=== PATIENT | male | born 2000 ===

== ENCOUNTER 2024-03-04 02:15 | Inpatient (IN) | payer MEDICAID, SELFPAY ==
[2024-03-04] MEDS ORDERED: NOREPINEPHRINE 8 MG/250 ML-D5W 250 ML ONE ×4 (02:53→07:42)
[2024-03-04] MEDS ORDERED: Sodium Bicarb 50 MEQ/50 ML Abboject 8.4% SYRINGE ONE ×5 (03:49→10:16)
[2024-03-04] MEDS ORDERED: Calcium Chloride 1 GM/10 ML Abboject SYRINGE ONE ×5 (03:50→11:16)
[2024-03-04] MEDS ORDERED: Insulin Regular, Human 100 UNIT/ML 10 ML VIAL ONE (03:51)
[2024-03-04] MEDS ORDERED: Dextrose 5% in Water 1,000 ML IV PRN (04:16)
[2024-03-04] MEDS ORDERED: Glucagon 1 MG/ML KIT IM PRN (04:16)
[2024-03-04] MEDS ORDERED: Dextrose 50% Abboject 50 ML SYRINGE SLOW IVP PRN (04:16)
[2024-03-04] MEDS ORDERED: Electrolyte Replacement Protocol 1 EACH FS PRN (04:17)
[2024-03-04 04:26] LABS: Prothrombin Time 31.5 sec (12.0-14.7)
[2024-03-04] MEDS ORDERED: Propofol 1,000 MG/100 ML VIAL IV PRN ×2 (04:30→11:45)
[2024-03-04] MEDS ORDERED: Fentanyl BOLUS 250 ML IVPB PRN ×2 (04:30→11:45)
[2024-03-04] MEDS ORDERED: Morphine 2 MG/ML VIAL SLOW IVP PRN ×2 (04:30→11:45)
[2024-03-04] MEDS ORDERED: Fentanyl CADD 100 ML IV SCH ×2 (04:30→11:45)
[2024-03-04] MEDS ORDERED: Lorazepam 2 MG/ML VIAL SLOW IVP PRN ×2 (04:30→11:45)
[2024-03-04] MEDS ORDERED: Propofol BOLUS 1,000 MG/100 ML VIAL IV PRN ×2 (04:30→11:45)
[2024-03-04] MEDS ORDERED: DISCONTINUE PREVIOUS NARCOTIC PAIN MEDICATIONS AND BENZODIAZEPINES FS SCH ×2 (04:30→11:45)
[2024-03-04] MEDS ORDERED: CEFAZOLIN 1 GM VIAL ONE (04:43)
[2024-03-04] MEDS ORDERED: EPINEPHrine 1 MG/10 ML Abboject SYRINGE ONE (04:43)
[2024-03-04] MEDS ORDERED: Sterile Water 20 ML ONE (04:43)
[2024-03-04] MEDS ORDERED: PHENYLEPHRINE-NS 100 MCG/ML 10 ML SYRINGE ONE (04:43)
[2024-03-04] MEDS ORDERED: Rocuronium Bromide 10 MG/ML (10ML VIAL) ONE ×2 (04:43→07:41)
[2024-03-04 04:50] LABS: Fibrinogen 96 mg/dL (253-463); PTT Greater than 250.0 sec (22.9-36.1)
[2024-03-04] MEDS ORDERED: Ondansetron ODT 4 MG TAB PO PRN (04:55)
[2024-03-04] MEDS ORDERED: Acetaminophen 650 MG Suppository PR PRN (04:55)
[2024-03-04] MEDS ORDERED: Acetaminophen 325 MG TAB PO PRN (04:55)
[2024-03-04] MEDS ORDERED: Ondansetron PF 4 MG/2 ML Vial IVP PRN (04:55)
[2024-03-04] MEDS ORDERED: NOREPINEPHRINE 8 MG/250 ML-D5W 250 ML IVPB SCH (05:00)
[2024-03-04] MEDS ORDERED: Piperacillin/Tazobactam 3.375 GM in Sodium Chloride 0.9% 100 ML IVPB SCH ×2 (05:15→10:00)
[2024-03-04 05:17] LABS: Base Excess (BEa) -18.6 mEq/L (-2.0 to +3.0); CO2 Tension 46.2 mmHg (35.0-45.0); Calcium, Ionized (arterial) 1.08 mmol/L (1.12-1.30); Carboxyhemoglobin (COHb) 0.6 gm% (0.0-3.0); Hematocrit-ABG 39 % (42.0-52.0); Hemoglobin (Hb) 13.3 g/dL (14.0-18.0); O2 Tension (PaO2), arterial 68.6 mmHg (80.0-100.0); Potassium - ABG Lab 4.97 mmol/L (3.70-5.30)
[2024-03-04 05:18] LABS: pH, Arterial 7.029 (7.35-7.45)
[2024-03-04 05:19] LABS: Actual Bicarbonate (HCO3a) 11.9 mEq/L (22-28); Puncture Site Arterial Line
[2024-03-04] MEDS ORDERED: Ipratropium/Albuterol 3 ML NEB NEB PRN (05:21)
[2024-03-04] MEDS: Ventilator Sedation Protocol 1 EACH FS ONE (05:26)
[2024-03-04] MEDS: Sodium Bicarb 50 mEq/50 ML VIAL IVP SCH (05:27)
[2024-03-04] MEDS: Sodium Bicarb 50 MEQ/50 ML Abboject 8.4% SYRINGE ONE (05:27)
[2024-03-04] MEDS: methylPREDNISolone Sod Succ/PF 125 MG/2 ML VIAL IVP SCH (05:28)
[2024-03-04] MEDS: cefOXitin Sodium 1 GM in Sodium Chloride 0.9% 100 ML IVPB SCH (05:35)
[2024-03-04] MEDS ORDERED: Lactated Ringer's 1,000 ML IV SCH ×2 (05:45→10:42)
[2024-03-04] MEDS: Sodium Bicarbonate 150 MEQ in Dextrose 5% in Water 1,000 ML IV SCH (05:46)
[2024-03-04 06:26] LABS: Alcohol 119.3 mg/dL (Less than 10)
[2024-03-04 06:28] LABS: Hematocrit 33.6 % (42.0-52.0); Mean Corpuscular HGB CONC 32.7 g/dL (32.0-36.0); Mean Corpuscular Hemoglobin 31.1 pg (27.0-31.0); Mean Corpuscular Volume 94.9 fL (78.0-98.0); Mean Platelet Volume 9.5 fL (7.4-10.4); Platelet Count 63 10x3/uL (130-400); RBC Distribution Width 14.7 % (11.5-14.5); Red Blood Cell (RBC) Count 3.54 mill/uL (4.70-6.10)
[2024-03-04 06:38] LABS: ALT (SGPT) 856 U/L (8-55); AST (SGOT) 1283 U/L (5-34); Albumin 2.5 g/dL (3.5-5.0); Alkaline Phosphatase 17 U/L (40-110); BUN (Urea Nitrogen) 13 mg/dL (8.9-20.6); Bilirubin, Total 0.3 mg/dL (0.2-1.2); Calc. Creatinine Clearance 0 mL/min (70-130); Carbon Dioxide Less than 8 mmol/L (22-29); Chloride 98 mmol/L (98-107); Estimated GFR 88; Globulin 2.3 g/dL (2.4-3.5); Glucose 141 mg/dL (70-105); Lactic Acid 16.13 mmol/L (0.5-2.2); Phosphorus 8.1 mg/dL (2.3-4.7); Potassium Greater than 10.0 mmol/L (3.5-5.1); Protein, Total 4.8 g/dL (6.0-8.3); Sodium 149 mmol/L (136-145)
[2024-03-04 06:39] LABS: Actual Bicarbonate (HCO3a) 17.8 mEq/L (22-28); Base Excess (BEa) -9.8 mEq/L (-2.0 to +3.0); CO2 Tension 46.5 mmHg (35.0-45.0); Carboxyhemoglobin (COHb) 0.4 gm% (0.0-3.0); Hematocrit-ABG 32 % (42.0-52.0); Hemoglobin (Hb) 10.9 g/dL (14.0-18.0); O2 Tension (PaO2), arterial 253.6 mmHg (80.0-100.0); Potassium - ABG Lab 3.73 mmol/L (3.70-5.30)
[2024-03-04 06:44] LABS: Calcium, Ionized (arterial) 0.65 mmol/L (1.12-1.30); Puncture Site Arterial Line; pH, Arterial 7.202 (7.35-7.45)
[2024-03-04 06:45] LABS: ALV-art Gradient 401.275 mmHg (0-20)
[2024-03-04] MEDS: Ipratropium/Albuterol 3 ML NEB NEB SCH (06:51)
[2024-03-04 07:20] LABS: Actual Bicarbonate (HCO3a) 17.7 mEq/L (22-28); Base Excess (BEa) -8.8 mEq/L (-2.0 to +3.0); CO2 Tension 40.8 mmHg (35.0-45.0); Carboxyhemoglobin (COHb) 0.4 gm% (0.0-3.0); Hematocrit-ABG 29 % (42.0-52.0); Hemoglobin (Hb) 9.8 g/dL (14.0-18.0); O2 Tension (PaO2), arterial 66.6 mmHg (80.0-100.0); Potassium - ABG Lab 3.43 mmol/L (3.70-5.30); pH, Arterial 7.256 (7.35-7.45)
[2024-03-04 07:29] LABS: Calcium, Ionized (arterial) 0.46 mmol/L (1.12-1.30); Puncture Site Arterial Line
[2024-03-04] MEDS ORDERED: Heparin 10,000 UNITS/ 10 ML VIAL ONE (07:34)
[2024-03-04] MEDS ORDERED: fentaNYL PF 100 MCG/2 ML SYRINGE ONE (07:40)
[2024-03-04] MEDS ORDERED: Lidocaine 2% PF 5 ML VIAL ONE (07:41)
[2024-03-04] MEDS ORDERED: Midazolam HCl 2 mg/2 ml Vial ONE (07:41)
[2024-03-04] MEDS ORDERED: PROPOFOL 20 ML ONE (07:41)
[2024-03-04 07:42] LABS: Platelet Count 73 10x3/uL (130-400)
[2024-03-04 07:54] LABS: Band 18 % (5-11); Eosinophils 3 % (0-10); Lymphocytes 12 % (21-51); Metamyelocyte 5 % (0-0); Neutrophil 61 % (42-75); Platelet Adequacy Comment Significant Decrease; Poikilocytosis SLIGHT = 6-15 cells HPF (0-5); Polychromasia SLIGHT = 2-3 cells HPF (0-2); Reactive Lymphocytes 1 % (0-10)
[2024-03-04] MEDS ORDERED: Calcium Chloride 1 GM/10 ML Abboject SYRINGE IVP SCH (08:00)
[2024-03-04] MEDS: Calcium Chloride 1 GM/10 ML Abboject SYRINGE IVP SCH ×2 (08:00→09:30)
[2024-03-04 08:01] LABS: Fibrinogen 313 mg/dL (253-463); INR-International Normal Ratio 1.5; Prothrombin Time 17.9 sec (12.0-14.7)
[2024-03-04 08:02] LABS: PTT 70.6 sec (22.9-36.1)
[2024-03-04 08:08] LABS: Actual Bicarbonate (HCO3a) 16.4 mEq/L (22-28); CO2 Tension 47.7 mmHg (35.0-45.0); Carboxyhemoglobin (COHb) 0.5 gm% (0.0-3.0); Hematocrit-ABG 32 % (42.0-52.0); Hemoglobin (Hb) 10.9 g/dL (14.0-18.0); Potassium - ABG Lab 2.76 mmol/L (3.70-5.30)
[2024-03-04 08:14] LABS: Calcium, Ionized (arterial) 1.89 mmol/L (1.12-1.30)
[2024-03-04 08:18] LABS: D-Dimer Test Greater than 20.00 mcg/mL (0.27-0.43)
[2024-03-04] MEDS ORDERED: Tranexamic Acid 1,000 MG/10 ML VIAL ONE (08:40)
[2024-03-04] MEDS ORDERED: Pantoprazole 40 MG VIAL IVP SCH (09:00)
[2024-03-04] MEDS: Lactated Ringer's 1,000 ML IV SCH (09:00)
[2024-03-04] MEDS: DESMOPRESSIN ACETATE IVPB SCH (09:23)
[2024-03-04] MEDS: SODIUM CHLORIDE 0.9% IVPB SCH (09:23)
[2024-03-04 09:26] LABS: Actual Bicarbonate (HCO3a) 42.6 mEq/L (22-28); Base Excess (BEa) 15.4 mEq/L (-2.0 to +3.0); Carboxyhemoglobin (COHb) 0.9 gm% (0.0-3.0); Hematocrit-ABG 19 % (42.0-52.0); Hemoglobin (Hb) 6.3 g/dL (14.0-18.0); Potassium - ABG Lab 2.96 mmol/L (3.70-5.30); pH, Arterial 7.343 (7.35-7.45)
[2024-03-04 09:56] LABS: INR-International Normal Ratio 1.7; Prothrombin Time 20.1 sec (12.0-14.7)
[2024-03-04 10:07] LABS: Actual Bicarbonate (HCO3a) 26.6 mEq/L (22-28); Base Excess (BEa) -0.3 mEq/L (-2.0 to +3.0); CO2 Tension 56.2 mmHg (35.0-45.0); Calcium, Ionized (arterial) 1.02 mmol/L (1.12-1.30); Carboxyhemoglobin (COHb) 0.3 gm% (0.0-3.0); Hematocrit-ABG 26 % (42.0-52.0); Hemoglobin (Hb) 8.8 g/dL (14.0-18.0); O2 Tension (PaO2), arterial 64.5 mmHg (80.0-100.0); Potassium - ABG Lab 2.79 mmol/L (3.70-5.30); pH, Arterial 7.293 (7.35-7.45)
[2024-03-04 10:09] LABS: Puncture Site Arterial Line
[2024-03-04 10:13] LABS: ALT (SGPT) 224 U/L (8-55); AST (SGOT) 349 U/L (5-34); Albumin 1.6 g/dL (3.5-5.0); Alkaline Phosphatase 44 U/L (40-110); Anion Gap 26 mmol/L (10-20); BUN (Urea Nitrogen) 11 mg/dL (8.9-20.6); Bilirubin, Total 0.3 mg/dL (0.2-1.2); Calc. Creatinine Clearance 0 mL/min (70-130); Calcium 11.9 mg/dL (7.8-10.44); Carbon Dioxide 37 mmol/L (22-29); Chloride 104 mmol/L (98-107); Estimated GFR 88; Globulin 1.1 g/dL (2.4-3.5); Glucose 185 mg/dL (70-105); Potassium 2.8 mmol/L (3.5-5.1); Protein, Total 2.7 g/dL (6.0-8.3); Sodium 164 mmol/L (136-145)
[2024-03-04] MEDS ORDERED: Albumin 25% 100 ML ONE (10:20)
[2024-03-04] MEDS ORDERED: Potassium Chloride 20 MEQ in Premix 1 BAG IVPB SCH (10:20)
[2024-03-04] MEDS: Potassium Chloride 20 MEQ in Premix 1 BAG IVPB SCH (10:22)
[2024-03-04] MEDS: Albumin 25% 25 GM (100 mL) BOT IVPB SCH ×2 (10:22→10:42)
[2024-03-04 10:28] LABS: Hematocrit 17.6 % (42.0-52.0); Hemoglobin 5.9 g/dL (14.0-18.0); Mean Corpuscular HGB CONC 33.5 g/dL (32.0-36.0); Mean Corpuscular Hemoglobin 30.7 pg (27.0-31.0); Mean Corpuscular Volume 91.7 fL (78.0-98.0); Platelet Count 52 10x3/uL (130-400); RBC Distribution Width 15.2 % (11.5-14.5); Red Blood Cell (RBC) Count 1.92 mill/uL (4.70-6.10)
[2024-03-04] MEDS ORDERED: Albumin 25% 25 GM (100 mL) BOT IVPB SCH (10:30)
[2024-03-04 10:34] LABS: Actual Bicarbonate (HCO3a) 23.5 mEq/L (22-28); Base Excess (BEa) -2.5 mEq/L (-2.0 to +3.0); CO2 Tension 46.5 mmHg (35.0-45.0); Carboxyhemoglobin (COHb) 0.4 gm% (0.0-3.0); Hematocrit-ABG 24 % (42.0-52.0); Hemoglobin (Hb) 8.1 g/dL (14.0-18.0); Potassium - ABG Lab 3.01 mmol/L (3.70-5.30); pH, Arterial 7.322 (7.35-7.45)
[2024-03-04 10:37] LABS: ALV-art Gradient 535.875 mmHg (0-20); Calcium, Ionized (arterial) 0.67 mmol/L (1.12-1.30); Puncture Site Arterial Line
[2024-03-04 10:41] VITALS: BP 126/50
[2024-03-04 10:46] LABS: Band 5 % (5-11); Large Platelets 3.1 % (0-5); Lymphocytes 26 % (21-51); Metamyelocyte 2 % (0-0); Monocytes 1 % (0-10); Neutrophil 66 % (42-75); Platelet Adequacy Comment Significant Decrease; Poikilocytosis SLIGHT = 6-15 cells HPF (0-5); Polychromasia SLIGHT = 2-3 cells HPF (0-2)
[2024-03-04 10:48] LABS: #Basophils Less than 0.03 10x3/uL (0.0-0.2); %Basophils 0.3 % (0.0-1.0); %Eosinophils 0.9 % (0.0-10.0); %Lymphocytes 12.5 % (21.0-51.0); %Neutrophils 81.5 % (42.0-75.0); Hematocrit 24.8 % (42.0-52.0); Hemoglobin 8.2 g/dL (14.0-18.0); Mean Corpuscular HGB CONC 33.1 g/dL (32.0-36.0); Mean Corpuscular Hemoglobin 30.6 pg (27.0-31.0); Mean Corpuscular Volume 92.5 fL (78.0-98.0); Mean Platelet Volume 9.4 fL (7.4-10.4); Platelet Count 56 10x3/uL (130-400); RBC Distribution Width 15.7 % (11.5-14.5); Red Blood Cell (RBC) Count 2.68 mill/uL (4.70-6.10)
[2024-03-04 11:10] LABS: ALT (SGPT) 137 U/L (8-55); AST (SGOT) 227 U/L (5-34); Albumin 2.1 g/dL (3.5-5.0); Alkaline Phosphatase 42 U/L (40-110); Anion Gap 30 mmol/L (10-20); BUN (Urea Nitrogen) 11 mg/dL (8.9-20.6); Bilirubin, Total 0.4 mg/dL (0.2-1.2); Calc. Creatinine Clearance 0 mL/min (70-130); Calcium 12.9 mg/dL (7.8-10.44); Carbon Dioxide 25 mmol/L (22-29); Chloride 107 mmol/L (98-107); Estimated GFR 71; Globulin 1.5 g/dL (2.4-3.5); Glucose 249 mg/dL (70-105); Potassium 2.7 mmol/L (3.5-5.1); Protein, Total 3.6 g/dL (6.0-8.3); Sodium 159 mmol/L (136-145)
[2024-03-04] MEDS ORDERED: fentaNYL 50 mcg/mL 1 mL Vial ONE (11:13)
[2024-03-04 11:28] LABS: Actual Bicarbonate (HCO3a) 23.1 mEq/L (22-28); Base Excess (BEa) -2.9 mEq/L (-2.0 to +3.0); CO2 Tension 46.3 mmHg (35.0-45.0); Calcium, Ionized (arterial) 0.85 mmol/L (1.12-1.30); Carboxyhemoglobin (COHb) 0.8 gm% (0.0-3.0); Hematocrit-ABG 23 % (42.0-52.0); Hemoglobin (Hb) 7.9 g/dL (14.0-18.0); O2 Tension (PaO2), arterial 72.1 mmHg (80.0-100.0); Potassium - ABG Lab 3.31 mmol/L (3.70-5.30); pH, Arterial 7.316 (7.35-7.45)
[2024-03-04 11:41] LABS: Puncture Site Arterial Line
[2024-03-04 11:42] LABS: ALV-art Gradient 583.025 mmHg (0-20)
[2024-03-04 12:06] LABS: Analyzer IN Cardio OR; Calcium, Ionized (arterial) 1.15 mmol/L (1.12-1.30); Carboxyhemoglobin (COHb) 0.3 gm% (0.0-3.0); Hematocrit-ABG 42 % (42.0-52.0); Hemoglobin (Hb) 14.2 g/dL (14.0-18.0); O2 Tension (PaO2), arterial 513.4 mmHg (80.0-100.0); Potassium - ABG Lab 5.59 mmol/L (3.70-5.30)
[2024-03-04 12:06] LABS: Analyzer IN Cardio OR; CO2 Tension 50.4 mmHg (35.0-45.0); Calcium, Ionized (arterial) 1.08 mmol/L (1.12-1.30); Carboxyhemoglobin (COHb) 0.1 gm% (0.0-3.0); Hematocrit-ABG 40 % (42.0-52.0); Hemoglobin (Hb) 13.6 g/dL (14.0-18.0); O2 Tension (PaO2), arterial 648.3 mmHg (80.0-100.0); Potassium - ABG Lab 5.77 mmol/L (3.70-5.30)
[2024-03-04 12:07] LABS: Analyzer IN Cardio OR; Base Excess (BEa) -20.9 mEq/L (-2.0 to +3.0); Calcium, Ionized (arterial) 0.99 mmol/L (1.12-1.30); Carboxyhemoglobin (COHb) 0.3 gm% (0.0-3.0); Hematocrit-ABG 36 % (42.0-52.0); Hemoglobin (Hb) 12.3 g/dL (14.0-18.0); O2 Tension (PaO2), arterial 571.8 mmHg (80.0-100.0); Potassium - ABG Lab 5.77 mmol/L (3.70-5.30)
[2024-03-04 12:09] VITALS: TEMP 98.1
[2024-03-04 12:11] LABS: Actual Bicarbonate (HCO3a) 18.1 mEq/L (22-28); Analyzer IN Cardio OR; Base Excess (BEa) -10.9 mEq/L (-2.0 to +3.0); CO2 Tension 56.2 mmHg (35.0-45.0); Calcium, Ionized (arterial) 0.99 mmol/L (1.12-1.30); Carboxyhemoglobin (COHb) 0.3 gm% (0.0-3.0); Hematocrit-ABG 29 % (42.0-52.0); Hemoglobin (Hb) 9.8 g/dL (14.0-18.0); O2 Tension (PaO2), arterial 97.2 mmHg (80.0-100.0); Potassium - ABG Lab 3.18 mmol/L (3.70-5.30)
[2024-03-04 12:11] LABS: Actual Bicarbonate (HCO3a) 29.3 mEq/L (22-28); Analyzer IN Cardio OR; Base Excess (BEa) -0.2 mEq/L (-2.0 to +3.0); Calcium, Ionized (arterial) 1.05 mmol/L (1.12-1.30); Carboxyhemoglobin (COHb) 0.3 gm% (0.0-3.0); Hematocrit-ABG 28 % (42.0-52.0); Hemoglobin (Hb) 9.5 g/dL (14.0-18.0); O2 Tension (PaO2), arterial 105.9 mmHg (80.0-100.0); Potassium - ABG Lab 2.98 mmol/L (3.70-5.30)
[2024-03-04] MEDS ORDERED: DESMOPRESSIN ACETATE IVPB SCH (12:30)
[2024-03-04] MEDS ORDERED: SODIUM CHLORIDE 0.9% IVPB SCH (12:30)
[2024-03-04] MEDS: fentaNYL 50 mcg/mL 1 mL Vial SLOW IVP SCH (12:41)
[2024-03-08 09:56] LABS: pH, Arterial 6.533 (7.35-7.45)
[2024-03-08 09:57] LABS: Actual Bicarbonate (HCO3a) 6.3 mEq/L (22-28); Base Excess (BEa) -34.2 mEq/L (-2.0 to +3.0); Puncture Site Arterial Line
[2024-03-08 09:58] LABS: Actual Bicarbonate (HCO3a) 6.1 mEq/L (22-28); Base Excess (BEa) -30.5 mEq/L (-2.0 to +3.0); Puncture Site Arterial Line; pH, Arterial 6.702 (7.35-7.45)
[2024-03-08 09:59] LABS: Actual Bicarbonate (HCO3a) 12.3 mEq/L (22-28); CO2 Tension 64.6 mmHg (35.0-45.0); Puncture Site Arterial Line; pH, Arterial 6.896 (7.35-7.45)
[2024-03-08 10:00] LABS: pH, Arterial 7.127 (7.35-7.45)
[2024-03-08 10:01] LABS: Puncture Site Arterial Line
[2024-03-08 10:02] LABS: pH, Arterial 7.181 (7.35-7.45)
[2024-03-08 10:03] LABS: Puncture Site Arterial Line
[2024-03-08 10:53] LABS: Actual Bicarbonate (HCO3a) 29.3 mEq/L (22-28); Analyzer IN Cardio OR; Base Excess (BEa) -0.2 mEq/L (-2.0 to +3.0); Calcium, Ionized (arterial) 1.05 mmol/L (1.12-1.30); Carboxyhemoglobin (COHb) 0.3 gm% (0.0-3.0); Hematocrit-ABG 28 % (42.0-52.0); Hemoglobin (Hb) 9.5 g/dL (14.0-18.0); O2 Tension (PaO2), arterial 105.9 mmHg (80.0-100.0); Potassium - ABG Lab 2.98 mmol/L (3.70-5.30)
[2024-03-08 10:53] LABS: Actual Bicarbonate (HCO3a) 18.1 mEq/L (22-28); Analyzer IN Cardio OR; Base Excess (BEa) -10.9 mEq/L (-2.0 to +3.0); CO2 Tension 56.2 mmHg (35.0-45.0); Calcium, Ionized (arterial) 0.99 mmol/L (1.12-1.30); Carboxyhemoglobin (COHb) 0.3 gm% (0.0-3.0); Hematocrit-ABG 29 % (42.0-52.0); Hemoglobin (Hb) 9.8 g/dL (14.0-18.0); O2 Tension (PaO2), arterial 97.2 mmHg (80.0-100.0); Potassium - ABG Lab 3.18 mmol/L (3.70-5.30)
[2024-03-08 10:54] LABS: Puncture Site Arterial Line; pH, Arterial 7.127 (7.35-7.45)
[2024-03-08 10:55] LABS: Puncture Site Arterial Line; pH, Arterial 7.181 (7.35-7.45)
[2024-03-08 13:16] LABS: O2 Tension (PaO2), arterial 58.9 mmHg (80.0-100.0); pH, Arterial 7.153 (7.35-7.45)
[2024-03-08 13:17] LABS: CO2 Tension 80.2 mmHg (35.0-45.0); O2 Tension (PaO2), arterial 53.1 mmHg (80.0-100.0)
== END 2024-03-04 15:30 | disposition expired | DRG 405 ==
LOC: SDC 02:55 → EDSTATUS 03:35 → EEVIPCON 04:48 → CCU 04:48
PROVIDERS: ADMIT Surgery; ATTEND Surgery
PROC: 0FBG0ZZ Excision of Pancreas, Open Approach (ICD-10-PCS; principal; 2024-03-04)
PROC: 0W3G0ZZ Control Bleeding in Peritoneal Cavity, Open Approach (ICD-10-PCS; 2024-03-04)
PROC: 30233N1 Transfusion of Nonautologous Red Blood Cells into Peripheral Vein, Percutaneous Approach (ICD-10-PCS; 2024-03-04)
PROC: 30233L1 Transfusion of Nonautologous Fresh Plasma into Peripheral Vein, Percutaneous Approach (ICD-10-PCS; 2024-03-04)
PROC: 30233M1 Transfusion of Nonautologous Plasma Cryoprecipitate into Peripheral Vein, Percutaneous Approach (ICD-10-PCS; 2024-03-04)
PROC: 6A551Z2 Pheresis of Platelets, Multiple (ICD-10-PCS; 2024-03-04)
PROC: 30233K1 Transfusion of Nonautologous Frozen Plasma into Peripheral Vein, Percutaneous Approach (ICD-10-PCS; 2024-03-04)
PROC: 4A133R1 Monitoring of Arterial Saturation, Peripheral, Percutaneous Approach (ICD-10-PCS; 2024-03-04)
PROC: 3E033XZ Introduction of Vasopressor into Peripheral Vein, Percutaneous Approach (ICD-10-PCS; 2024-03-04)
PROC: 3E03329 Introduction of Other Anti-infective into Peripheral Vein, Percutaneous Approach (ICD-10-PCS; 2024-03-04)
PROC: 30233J1 Transfusion of Nonautologous Serum Albumin into Peripheral Vein, Percutaneous Approach (ICD-10-PCS; 2024-03-04)
PROC: 5A1935Z Respiratory Ventilation, Less than 24 Consecutive Hours (ICD-10-PCS; 2024-03-04)
DX: S36.232A Laceration of tail of pancreas, unspecified degree, initial encounter (principal); D65 Disseminated intravascular coagulation [defibrination syndrome]; J96.00 Acute respiratory failure, unspecified whether with hypoxia or hypercapnia; S31.634A Puncture wound without foreign body of abdominal wall, left lower quadrant with penetration into peritoneal cavity, initial encounter; E87.20 Acidosis, unspecified; I46.9 Cardiac arrest, cause unspecified; R57.8 Other shock; E16.2 Hypoglycemia, unspecified; T68.XXXA Hypothermia, initial encounter; Z90.49 Acquired absence of other specified parts of digestive tract
CPT/HCPCS: 36415; 36416; 36430; 71045; 74018; 80307; 82330; 82805; 83605; 83735; 84100; 85049; 85300; 85362; 85384; 85610; 85730; 86850; 86900; 86901; 87040; 88305; 94002; 94640; 97139; A4314; A4649; A6550; C1713; G0390; J0171; J0690; J0694; J1644; J1815; J2250; J2597; J2704; J2919; J3010; J3480; J7070; J7120; J7189; J7620; P9012; P9016; P9035; P9047; P9048; P9059